=== PATIENT | male | born 1985 | race Caucasian/White ===

== ENCOUNTER → 2025-06-03 | Outpatient (CLI) | payer BC ==
[~2025-06-03] MED LIST: IOHEXOL-350 75 ML VIAL IV ONE
--- NOTE | 2025-06-03 18:03 | HMCIMG ---
EXAM: CT PELVIS WITH INTRAVENOUS CONTRAST Technique: Helical computed tomography of the pelvis with axial images and multiplanar reformations in the coronal and sagittal planes; dose optimization per ALARA. CTDIvol 17.3 mGy; DLP 836.2 mGy???cm. Contrast: Standard dose of intravenous contrast administered. Clinical Information: Localized enlarged lymph nodes. Findings: Pelvic organs: Urinary bladder normal in contour and wall thickness. Uterus/ovaries or prostate/seminal vesicles (as applicable to patient) without acute abnormality on this study. Lymph nodes: Multiple bilateral inguinal lymph nodes are present, all subcentimeter in short axis and not enlarged by size criteria; no pathologic pelvic lymphadenopathy identified. Peritoneum/mesentery: No ascites or peritoneal nodularity. Vasculature/retroperitoneum: Pelvic vessels of normal caliber without acute abnormality. Abdominal wall/soft tissues: Tiny fat-containing right inguinal hernia. No fluid collection. Osseous structures: No acute osseous abnormality; mild degenerative changes as expected for age. Impression: * Multiple bilateral inguinal lymph nodes, all subcentimeter and not enlarged by size criteria???nonspecific/reactive appearance; correlate clinically. * Tiny fat-containing right inguinal hernia. * Otherwise unremarkable contrast-enhanced CT pelvis. /[place]
== END | disposition home or self-care (01) ==
LOC: RAH 13:09
PROVIDERS: ATTEND Family Medicine
DX: K40.90 Unilateral inguinal hernia, without obstruction or gangrene, not specified as recurrent (principal); M47.816 Spondylosis without myelopathy or radiculopathy, lumbar region; R59.0 Localized enlarged lymph nodes
CPT/HCPCS: 72193; Q9967